=== PATIENT | male | born 1995 | race Asian ===

== ENCOUNTER 2019-02-08 11:38 | Emergency (ER) | payer BC, OTHER ==
[2019-02-08] MEDS: predniSONE 20 MG TAB PO (14:53)
== END 2019-02-08 15:54 | disposition home or self-care (01) ==
LOC: FTE 11:38
DX: S60.562A Insect bite (nonvenomous) of left hand, initial encounter (principal); S40.861A Insect bite (nonvenomous) of right upper arm, initial encounter; W57.XXXA Bitten or stung by nonvenomous insect and other nonvenomous arthropods, initial encounter
CPT/HCPCS: 99283

== ENCOUNTER 2019-02-10 06:21 | Emergency (ER) | payer SELFPAY, BC | END 2019-02-10 07:09 | disposition left against medical advice (07) | LOC: FTE 06:21 | DX: Z53.21 Procedure and treatment not carried out due to patient leaving prior to being seen by health care provider (principal) ==